=== PATIENT | female | born 1965 | race Caucasian/White ===

== ENCOUNTER → 2017-04-30 | Outpatient (CLI) | payer OTHER ==
--- NOTE | 2017-05-01 14:36 | MAMMOGRAPHY REPORT ---
THIS REPORT HAS BEEN AMENDED. BILATERAL DIGITAL SCREENING MAMMOGRAM TOMOSYNTHESIS WITH CAD: 04/30/2017 CLINICAL HISTORY: Routine screening. Patient has no complaints. TECHNIQUE: Breast tomosynthesis in addition to standard 2D mammography was performed. Current study was also evaluated with a Computer Aided Detection (CAD) system. COMPARISON: No prior exams were available for comparison. BREAST COMPOSITION: There are scattered areas of fibroglandular density in both breasts. FINDINGS: No suspicious mass, architectural distortion or cluster of microcalcifications is seen. IMPRESSION: ACR BI-RADS CATEGORY 1: NEGATIVE There is no mammographic evidence of malignancy. Prior outside mammograms from [facility] are cu rrently being requested and if obtained they will be reviewed, compared to the current exam to assess for any more subtle changes, and an addendum will be made to this report. Otherwise, a 1 year scree shira mammogram is recommended. The patient will receive written notification of the results. Approximately 10% of breast cancers are not detected with mammography. A negative mammographic report should not delay biopsy if a clinically suggestive mass is present. Daisy Marshall M.D. ay/:04/30/2017 15:56:30 Optimization Consultant: Maria E CAVAZOS(Christopher)(M), [facility] letter sent: Normal 09/18 BI-RADS Code: ACR BI-RADS Category 1: Negative AMENDMENT: 05/23/2017 Daisy Marshall M.D. Prior outside mammograms from [facility] dated 02/24/2011, 04/17/2012, 05/02/2013, 02/24/2015, became available for review. There has been no significant interval change compared to the prior outside mammograms. No new suspicious mass, asymmetry, architectural distortion or calcificati ons are seen. Recommend routine screening in 1 year. Amended BI-RADS: ACR BI-RADS Category 1: Negative letter sent: Normal /2
== END | disposition home or self-care (01) ==
LOC: C.MAMM 15:06
PROVIDERS: ATTEND Family Medicine
DX: Z12.31 Encounter for screening mammogram for malignant neoplasm of breast (principal)